=== PATIENT | female | born 1990 | race Two or more races ===

== ENCOUNTER 2017-10-16 14:14 | Emergency (ER) | payer MEDICARE ==
[~2017-10-16] VITALS: Ht 165.1 cm; Wt 82.1 kg
[2017-10-16 14:30] VITALS: BP 121/80
--- NOTE | 2017-10-16 15:47 | Emergency Room Report ---
History of Present Illness General Chief Complaint: General Complaint Source: Patient Present Illness HPI This patient states that she requires a chest x-ray for TB clearance for the place that she is about to live. She denies contact with TB or high risk history. She denies cough. She denies weight loss. She denies night sweats. She denies bloody sputum. She has no other complaints. Allergies: Uncoded Allergies: RESPIRADOLE (Allergy, Unknown, 10/16/17) Patient History Past Medical History: none Social History: Denies: smoking, alcohol use, drug use Last Menstrual Period: 10/09/17 Now: No - not sure : 0 Para: 0 Reviewed Nursing Documentation: PMH: Agreed; PSxH: Agreed Nursing Documentation-PMH Past Medical History: No History, Except For History Of Psychiatric Problem: Yes - depression bi-polar Review of Systems All Other Systems: negative except mentioned in HPI Physical Exam Vital Signs Date Time Temp Pulse Resp B/P (MAP) Pulse Ox O2 Delivery O2 Flow Rate FiO2 10/16/17 14:22 98.3 83 18 121/80 97 Room Air 98.2 Sp02 EP Interpretation: reviewed, normal General Appearance: no apparent distress, alert, GCS 15, non-toxic Head: normocephalic, atraumatic Eyes: bilateral eye normal inspection, bilateral eye PERRL ENT: hearing grossly normal, normal pharynx, no angioedema, normal voice Neck: full range of motion, supple/symm/no masses Respiratory: chest non-tender, lungs clear, normal breath sounds, no respiratory distress, no retraction, no accessory muscle use, speaking full sentences Cardiovascular #1: regular rate, rhythm, no edema Rectal: deferred Musculoskeletal: gait/station normal, normal range of motion Neurologic: alert, oriented x3, responsive, motor strength/tone normal, sensory intact, speech normal Psychiatric: judgement/insight normal, memory normal, mood/affect normal, no suicidal/homicidal ideation Skin: normal color, no rash, warm/dry, well hydrated Medical Decision Making Diagnostic Impression: Primary Impression: Screening examination for pulmonary tuberculosis ER Course This patient has no evidence of pulmonary tuberculosis on chest x-ray. She also has no history that would make me concerned for active tuberculosis. The patient was educated that she would need to obtain a PPD skin test at another facility as we do not provide this in the emergency department. Chest X-Ray Diagnostic Results Chest X-Ray Diagnostic Results : Chest X-Ray Ordered: Yes # of Views/Limited/Complete: 1 View Indication: Other EP Interpretation: Yes Interpretation: no consolidation, no effusion, no pneumothorax, no acute cardiopulmonary disease Impression: No acute disease Electronically Signed by: Ihsan Last Vital Signs Date Time Temp Pulse Resp B/P (MAP) Pulse Ox O2 Delivery O2 Flow Rate FiO2 10/16/17 14:30 98.2 83 18 121/80 97 Room Air 98.2 Disposition: HOME, SELF-CARE Condition: Stable Referrals: NOT CHOSEN IPA/,REFERRING (PCP) Justine Koch DO Oct 16, 2017 15:47
[2017-10-16 15:56] VITALS: BP 121/80
--- NOTE | 2017-10-16 16:13 | Diagnostic Imaging Report ---
Indication: TB SCREEN, employee health Technique: One view of the chest Comparison: none Findings: Lungs and pleural spaces are clear. Heart size is normal Impression: No acute process
== END 2017-10-16 15:58 | disposition home or self-care (01) ==
LOC: EMR 14:43
DX: Z11.1 Encounter for screening for respiratory tuberculosis (principal)
CPT/HCPCS: 71045; 99283